=== PATIENT | female | born 1985 | race Caucasian/White ===

== ENCOUNTER 2016-11-26 04:02 | Emergency (ER) | payer BC ==
[~2016-11-26] VITALS: Ht 165.1 cm; Wt 67.7 kg
[~2016-11-26 04:02] MED LIST: ZOLOFT100 MG PO
[2016-11-26 04:35] LABS: HEMATOCRIT 36.1 % (36.0-46.0); MCH 30.4 PG (29.0-34.0); MCHC 33.5 G/DL (30.0-36.0); MCV 90.7 FL (83-99); MEAN PLAT.VOLUME 9.9 uM^3 (9.5-12.4); PLATELET COUNT 200 K/uL (156-360); RBC DIS.WIDTH-CV 12.4 % (11.8-14.6); RBC DIS.WIDTH-SD 40.9 % (39-53); RED BLOOD COUNT 3.98 M/uL (3.80-5.20); WHITE BLOOD COUNT 7.6 K/uL (4.1-10.2)
[2016-11-26 04:46] LABS: CHLORIDE 107 mEq/L (99-109); POTASSIUM 3.5 mEq/L (3.7-5.4); SODIUM 139 mEq/L (136-147)
[2016-11-26 04:47] LABS: GLUCOSE 103 mg/dL (70-99)
[2016-11-26 04:49] LABS: ANION GAP 7 MEQ/L (2-14)
[2016-11-26 04:51] LABS: GFR ESTIMATE (CALCULATED) > 59 mL/min/
[2016-11-26 04:52] LABS: UREA NITROGEN (BUN) 10 mg/dL (9-23)
[2016-11-26 05:03] LABS: QUANTITATIVE HCG 103.1 MIU/ML
[2016-11-26 06:58] LABS: ADD MIUA? YES; BILIRUBIN NEGATIVE; BLOOD LARGE; COLOR YELLOW ((YELLOW)); GLUCOSE (STRIP) NEGATIVE; KETONES NEGATIVE; LEUKOCYTES NEGATIVE; NITRITE NEGATIVE; PROTEIN (STRIP) NEGATIVE; SPECIFIC GRAVITY 1.012 (1.000-1.030); UROBILINOGEN 0.2 MG/DL (0.2-1.0)
[2016-11-26 07:25] LABS: BACTERIA RARE /HPF; CASTS NONE SEEN /LPF; CRYSTALS NONE SEEN; EPITHELIAL CELLS 1+ /HPF; MUCUS NONE SEEN /LPF; UCUL ADDED? NO; WHITE BLOOD CELLS RARE /HPF (0-5)
[2016-11-26 07:26] VITALS: BP 115/64
== END 2016-11-26 07:26 | disposition home or self-care (01) ==
LOC: EME → EDBD 04:02 → EME 04:02
DX: O03.9 Complete or unspecified spontaneous abortion without complication (principal)
CPT/HCPCS: 76815; 80048; 81003; 84702; 85027; 86900; 86901; 99281; 99284